=== PATIENT | female | born 1985 | race Caucasian/White ===

== ENCOUNTER 2020-08-14 05:07 | Emergency (ER) | payer OTHER ==
[~2020-08-14 05:07] MED LIST: ACETAMINOPHEN500 M1 PO; AMOXICILLIN500 MG PO; AUGMENTIN 875-1 EACH PO; BACTRIM DS TAB1 EACH PO; BENTYL10 MG PO; BIAXIN500 MG PO; CEFDINIR300 MG PO; CIPRO500 M1 PO; COLACE100 MG PO; CYCLOBENZAPRINE10 MG PO; DICLOFENAC SODI75 MG PO; FLEXERIL10 MG PO; FLOMAX0.4 MG PO; HYDROXYZINE PAM25 MG PO; IBUPROFEN800 MG PO; LEVAQUIN500 MG PO; LEVOTHYROXINE100 MCG PO; LIDOCAINE 5% P1 EACH TOP; MAVYRET 100-401 EACH PO; MEDROL 4MG DOSEP4 MG PO; MELOXICAM15 MG PO; METRONIDAZOLE500 MG PO; MOTRIN600 MG PO; NAPROSYN500 MG PO; NAPROXEN500 MG PO; NEURONTIN300 MG PO; NORCO 5-325 TA1 EACH PO; OFLOXACIN5 M1 AU; ONDANSETRON ODT4 MG PO; ONDANSETRON ODT4 MG SL; PEPCID AC20 MG PO; PEPTO-BISM525 MG/15 PO; PERCOCET 5-3251 EACH PO; PERCOCET 7.5/321 TAB PO; PHENERGAN25 M1 PO; PREDNISONE 20MG20 MG PO; PREDNISONE50 MG PO; PROTONIX 40MG T40 MG PO; PYRIDIUM200 MG PO; ROBAXIN500 MG PO; ROBAXIN750 MG PO; SENOKOT8.6 MG PO; SKELAXIN800 MG PO; SYNTHROID100 MCG PO; TESSALON PERLE100 MG PO; TRAMADOL HCL50 MG PO; VENTOLIN HFA IN18 GM INH; VOLTAREN **OUT50 MG PO; VOLTAREN **OUT75 MG PO; ZOFRAN ODT4 MG PO/SL; ZOFRAN4 M1 PO; ZOFRAN4 MG PO; ZPAK PO
[2020-08-14 07:26] LABS: BILIRUBIN NEGATIVE (NEGATIVE); BLOOD NEGATIVE Ery/uL (NEGATIVE); CLARITY CLEAR (CLEAR); COLOR YELLOW (YELLOW); GLUCOSE (U) NORMAL (NORMAL); LEUKOCYTES NEGATIVE Leu/uL (NEGATIVE); NITRITE NEGATIVE (NEGATIVE); PROTEIN NEGATIVE (NEGATIVE); SPECIFIC GRAVITY 1.025 (1.001-1.030); UROBILINOGEN 0.2 mg/dL (0.2-1.0)
[2020-08-14 07:46] LABS: BASOPHIL 0.4 % (0-2); EOSINOPHIL 1.9 % (0-5); HCT 41.8 % (37.0-47.0); HGB 14.3 g/dl (12.5-16.0); LYMPHOCYTE 38.1 % (15-48); MCH 32.8 pg (25.0-31.0); MCHC 34.2 g/dL (32.0-36.0); MCV 95.9 fL (78.0-100.0); MONOCYTE 9.5 % (0-12); MPV 10.4 fL (6.0-9.5); NEUTROPHIL 49.7 % (41-80); NRBC 0; PLT 278 K/uL (150-400); RBC 4.36 M/uL (4.20-5.40); RDW 13.4 % (11.5-14.0); WBC 9.6 K/uL (4.0-10.5)
[2020-08-14 08:02] LABS: ALBUMIN 3.8 g/dL (3.4-5.0); BILIRUBIN - TOTAL 0.3 mg/dL (0.2-1.0); BUN/CREAT RATIO (CALC) 12.9 RATIO; CREATININE 0.85 mg/dL (0.51-0.95); GLOBULIN (CALCULATION) 3.5 g/dL; POTASSIUM 3.5 mmol/L (3.5-5.1); TOTAL PROTEIN 7.3 g/dL (6.4-8.2)
[2020-08-14] MEDS ORDERED: IBUPROFEN800 MG PO (08:14)
[2020-08-14] MEDS ORDERED: FLOMAX0.4 MG PO (08:14)
[2020-08-14] MEDS ORDERED: PERCOCET 7.5-31 EACH PO (08:14)
[2020-08-14] MEDS ORDERED: ONDANSETRON ODT4 MG SL (08:14)
== END 2020-08-14 09:00 | disposition home or self-care (01) ==
LOC: FER 05:07
PROVIDERS: Emergency Medicine Emergency Medical Services
DX: N20.1 Calculus of ureter (principal); N83.202 Unspecified ovarian cyst, left side; J45.909 Unspecified asthma, uncomplicated; E07.9 Disorder of thyroid, unspecified; F17.200 Nicotine dependence, unspecified, uncomplicated; Z91.041 Radiographic dye allergy status; Z90.49 Acquired absence of other specified parts of digestive tract; Z98.890 Other specified postprocedural states; Z79.899 Other long term (current) drug therapy
CPT/HCPCS: 36415; 80053; 81003; 85025; J1170; J1885; J2405; J7030

== ENCOUNTER 2020-08-16 17:28 | Emergency (ER) | payer OTHER ==
[~2020-08-16 17:28] MED LIST changes: +PERCOCET 7.5-31 EACH PO
[2020-08-16 19:14] LABS: BASOPHIL 0.3 % (0-2); EOSINOPHIL 1.1 % (0-5); HCT 42.1 % (37.0-47.0); HGB 14.1 g/dl (12.5-16.0); LYMPHOCYTE 33.4 % (15-48); MCH 32.7 pg (25.0-31.0); MCHC 33.5 g/dL (32.0-36.0); MCV 97.7 fL (78.0-100.0); MONOCYTE 8.8 % (0-12); MPV 10.1 fL (6.0-9.5); NEUTROPHIL 55.7 % (41-80); NRBC 0; PLT 269 K/uL (150-400); RBC 4.31 M/uL (4.20-5.40); RDW 13.7 % (11.5-14.0); WBC 8.9 K/uL (4.0-10.5)
[2020-08-16 19:30] LABS: BUN/CREAT RATIO (CALC) 13.2 RATIO; CREATININE 0.91 mg/dL (0.51-0.95); POTASSIUM 3.9 mmol/L (3.5-5.1)
[2020-08-16] MEDS ORDERED: TRAMADOL HCL50 MG PO ×2 (20:29→20:31)
== END 2020-08-16 20:40 | disposition home or self-care (01) ==
LOC: FER 17:28
PROVIDERS: Nurse Practitioner Family
DX: N83.202 Unspecified ovarian cyst, left side (principal); G89.29 Other chronic pain; Z79.891 Long term (current) use of opiate analgesic; Z87.442 Personal history of urinary calculi; Z90.49 Acquired absence of other specified parts of digestive tract; Z91.041 Radiographic dye allergy status; Z79.1 Long term (current) use of non-steroidal anti-inflammatories (NSAID); Z79.899 Other long term (current) drug therapy
CPT/HCPCS: 36415; 80048; 85025; J1885

== ENCOUNTER 2020-10-23 13:31 | Emergency (ER) | payer OTHER ==
[2020-10-23 14:50] LABS: BILIRUBIN NEGATIVE (NEGATIVE); BLOOD NEGATIVE Ery/uL (NEGATIVE); CLARITY CLEAR (CLEAR); COLOR YELLOW (YELLOW); GLUCOSE (U) NORMAL (NORMAL); LEUKOCYTES NEGATIVE Leu/uL (NEGATIVE); NITRITE NEGATIVE (NEGATIVE); PROTEIN NEGATIVE (NEGATIVE); SPECIFIC GRAVITY 1.025 (1.001-1.030); UROBILINOGEN 0.2 mg/dL (0.2-1.0)
[2020-10-23 15:33] LABS: BASOPHIL 0.4 % (0-2); EOSINOPHIL 1.1 % (0-5); HCT 40.8 % (37.0-47.0); HGB 13.4 g/dl (12.5-16.0); LYMPHOCYTE 29.9 % (15-48); MCH 32.7 pg (25.0-31.0); MCHC 32.8 g/dL (32.0-36.0); MCV 99.5 fL (78.0-100.0); MONOCYTE 9.9 % (0-12); MPV 10.2 fL (6.0-9.5); NEUTROPHIL 58.3 % (41-80); NRBC 0; PLT 226 K/uL (150-400); RDW 13.2 % (11.5-14.0); WBC 9.8 K/uL (4.0-10.5)
[2020-10-23 15:49] LABS: ALBUMIN 3.7 g/dL (3.4-5.0); BILIRUBIN - TOTAL 0.3 mg/dL (0.2-1.0); BUN/CREAT RATIO (CALC) 17.8 RATIO; CREATININE 0.73 mg/dL (0.51-0.95); GLOBULIN (CALCULATION) 3.4 g/dL; POTASSIUM 3.8 mmol/L (3.5-5.1); TOTAL PROTEIN 7.1 g/dL (6.4-8.2)
== END 2020-10-23 17:37 | disposition home or self-care (01) ==
LOC: FER 13:31
PROVIDERS: Emergency Medicine
DX: G89.29 Other chronic pain (principal); R10.32 Left lower quadrant pain; F17.210 Nicotine dependence, cigarettes, uncomplicated; Z91.041 Radiographic dye allergy status
CPT/HCPCS: 36415; 80053; 81003; 82150; 83690; 85025; 99284

== ENCOUNTER 2020-10-30 16:07 | Emergency (ER) | payer OTHER ==
[2020-10-30 17:36] LABS: BASOPHIL 0.4 % (0-2); HCT 41.9 % (37.0-47.0); HGB 14.1 g/dl (12.5-16.0); LYMPHOCYTE 24.8 % (15-48); MCH 32.6 pg (25.0-31.0); MCHC 33.7 g/dL (32.0-36.0); MCV 96.8 fL (78.0-100.0); MONOCYTE 8.9 % (0-12); MPV 10.3 fL (6.0-9.5); NEUTROPHIL 64.3 % (41-80); NRBC 0; PLT 252 K/uL (150-400); RBC 4.33 M/uL (4.20-5.40); RDW 13.1 % (11.5-14.0); WBC 11.2 K/uL (4.0-10.5)
[2020-10-30 17:51] LABS: ALBUMIN 3.9 g/dL (3.4-5.0); BILIRUBIN - TOTAL 0.6 mg/dL (0.2-1.0); BUN/CREAT RATIO (CALC) 12.7 RATIO; CREATININE 0.71 mg/dL (0.51-0.95); GLOBULIN (CALCULATION) 3.3 g/dL; POTASSIUM 3.7 mmol/L (3.5-5.1); TOTAL PROTEIN 7.2 g/dL (6.4-8.2)
[2020-10-30] MEDS ORDERED: ZOFRAN4 M1 PO (20:19)
== END 2020-10-30 20:32 | disposition home or self-care (01) ==
LOC: FER 16:07
PROVIDERS: Nurse Practitioner Family
DX: R10.13 Epigastric pain (principal); R11.2 Nausea with vomiting, unspecified; R19.7 Diarrhea, unspecified; J45.909 Unspecified asthma, uncomplicated; Z91.041 Radiographic dye allergy status; Z20.822 Contact with and (suspected) exposure to COVID-19
CPT/HCPCS: 36415; 73610; 80053; 85025; J2405; J7030; U0002

== ENCOUNTER 2020-11-14 06:43 | Emergency (ER) | payer OTHER ==
[2020-11-14] MEDS ORDERED: VENTOLIN HFA IN18 GM INH (09:01)
== END 2020-11-14 09:23 | disposition home or self-care (01) ==
LOC: FER 06:43
DX: J45.909 Unspecified asthma, uncomplicated (principal); J06.9 Acute upper respiratory infection, unspecified; R10.12 Left upper quadrant pain; R10.32 Left lower quadrant pain; Z20.822 Contact with and (suspected) exposure to COVID-19; Z98.890 Other specified postprocedural states; Z90.49 Acquired absence of other specified parts of digestive tract; Z90.710 Acquired absence of both cervix and uterus; Z91.041 Radiographic dye allergy status
CPT/HCPCS: 94640; 94664; U0002

== ENCOUNTER 2020-11-21 14:08 | Emergency (ER) | payer OTHER ==
[2020-11-21 15:35] LABS: BILIRUBIN NEGATIVE (NEGATIVE); BLOOD NEGATIVE Ery/uL (NEGATIVE); CLARITY CLEAR (CLEAR); COLOR YELLOW (YELLOW); GLUCOSE (U) NORMAL (NORMAL); LEUKOCYTES 1+ Leu/uL (NEGATIVE); NITRITE NEGATIVE (NEGATIVE); PROTEIN NEGATIVE (NEGATIVE); SPECIFIC GRAVITY 1.015 (1.001-1.030); UROBILINOGEN 0.2 mg/dL (0.2-1.0); pH 7.5 (5.0-9.0)
[2020-11-21 15:49] LABS: AMORPHOUS URATES CRYSTALS MODERATE; BACTERIA TRACE
[2020-11-21] MEDS ORDERED: PREDNISONE 20MG20 MG PO (17:00)
== END 2020-11-21 17:21 | disposition home or self-care (01) ==
LOC: FER 14:08
PROVIDERS: Nurse Practitioner Family
DX: M54.16 Radiculopathy, lumbar region (principal); G89.29 Other chronic pain; E03.9 Hypothyroidism, unspecified; F17.210 Nicotine dependence, cigarettes, uncomplicated; Z90.49 Acquired absence of other specified parts of digestive tract; Z90.710 Acquired absence of both cervix and uterus; Z91.041 Radiographic dye allergy status
CPT/HCPCS: 72131; 81001; 87088; J1100

== ENCOUNTER 2020-11-23 23:33 | Day surgery (SDC) | payer OTHER ==
[~2020-11-23] VITALS: Ht 157.5 cm; Wt 77.1 kg
[2020-11-24 02:21] LABS: BILIRUBIN NEGATIVE (NEGATIVE); BLOOD NEGATIVE Ery/uL (NEGATIVE); CLARITY CLEAR (CLEAR); COLOR YELLOW (YELLOW); GLUCOSE (U) NORMAL (NORMAL); LEUKOCYTES 1+ Leu/uL (NEGATIVE); NITRITE NEGATIVE (NEGATIVE); PROTEIN NEGATIVE (NEGATIVE); pH 6.5 (5.0-9.0)
[2020-11-24 02:22] LABS: BASOPHIL 0.5 % (0-2); EOSINOPHIL 1.5 % (0-5); HCT 40.7 % (37.0-47.0); HGB 13.8 g/dl (12.5-16.0); LYMPHOCYTE 42.3 % (15-48); MCH 32.6 pg (25.0-31.0); MCHC 33.9 g/dL (32.0-36.0); MCV 96.2 fL (78.0-100.0); MONOCYTE 8.6 % (0-12); MPV 10.1 fL (6.0-9.5); NEUTROPHIL 46.8 % (41-80); NRBC 0; PLT 260 K/uL (150-400); RBC 4.23 M/uL (4.20-5.40); RDW 13.1 % (11.5-14.0); WBC 10.7 K/uL (4.0-10.5)
[2020-11-24 02:31] LABS: CALCIUM OXALATE CRYSTALS MODERATE
[2020-11-24 02:34] LABS: BACTERIA 1+
[2020-11-24 02:40] LABS: ALBUMIN 3.5 g/dL (3.4-5.0); BILIRUBIN - TOTAL 0.2 mg/dL (0.2-1.0); BUN/CREAT RATIO (CALC) 15.9 RATIO; CREATININE 0.82 mg/dL (0.51-0.95); GLOBULIN (CALCULATION) 3.1 g/dL; TOTAL PROTEIN 6.6 g/dL (6.4-8.2)
[2020-11-24] MEDS ORDERED: MOTRIN600 MG PO (16:44)
[2020-11-24] MEDS ORDERED: COLACE100 MG PO (16:44)
[2020-11-24] MEDS ORDERED: PERCOCET 5-3251 EACH PO ×2 (16:44→16:45)
[2020-11-25 22:05] LABS: CHLAMYDIA TRACHOMATIS, NAA Negative (Negative); NEISSERIA GONORRHOEAE, NAA Negative (Negative)
== END 2020-11-24 21:28 | disposition home or self-care (01) ==
LOC: FER 23:33 → FAS 11-24 08:17 → FMS 11-24 19:48 → FAS 11-24 21:28
PROVIDERS: Emergency Medicine Emergency Medical Services
DX: N83.202 Unspecified ovarian cyst, left side (principal); K66.0 Peritoneal adhesions (postprocedural) (postinfection); J45.909 Unspecified asthma, uncomplicated; F17.210 Nicotine dependence, cigarettes, uncomplicated; A59.9 Trichomoniasis, unspecified; M19.90 Unspecified osteoarthritis, unspecified site; E03.9 Hypothyroidism, unspecified; M51.16 Intervertebral disc disorders with radiculopathy, lumbar region; E11.9 Type 2 diabetes mellitus without complications; Z91.51 Personal history of suicidal behavior; Z79.899 Other long term (current) drug therapy; Z91.041 Radiographic dye allergy status; Z90.710 Acquired absence of both cervix and uterus; Z90.721 Acquired absence of ovaries, unilateral; Z90.79 Acquired absence of other genital organ(s); Z20.822 Contact with and (suspected) exposure to COVID-19
CPT/HCPCS: 36415; 76830; 80053; 81001; 85025; 87088; 87491; 87591; J0696; J1100; J1170; J1885; J2250; J2270; J2405; J2704; J2710; J3010; J7120; U0002

== ENCOUNTER 2020-11-24 10:55 | Emergency (ER) | payer OTHER ==
[2020-11-24] MEDS ORDERED: COLACE100 MG PO (16:44)
[2020-11-24] MEDS ORDERED: PERCOCET 5-3251 EACH PO ×2 (16:44→16:45)
[2020-11-24] MEDS ORDERED: MOTRIN600 MG PO (16:44)
== END 2020-11-24 16:23 | disposition still patient (30) ==
LOC: FER 10:55
DX: N83.512 Torsion of left ovary and ovarian pedicle (principal); J45.909 Unspecified asthma, uncomplicated; F17.210 Nicotine dependence, cigarettes, uncomplicated; Z91.041 Radiographic dye allergy status
CPT/HCPCS: J1170; J2405; J7030

== ENCOUNTER 2020-11-28 14:10 | Emergency (ER) | payer OTHER ==
[2020-11-28 14:43] LABS: BILIRUBIN NEGATIVE (NEGATIVE); BLOOD NEGATIVE Ery/uL (NEGATIVE); CLARITY CLEAR (CLEAR); COLOR YELLOW (YELLOW); GLUCOSE (U) NORMAL (NORMAL); LEUKOCYTES NEGATIVE Leu/uL (NEGATIVE); NITRITE NEGATIVE (NEGATIVE); PROTEIN NEGATIVE (NEGATIVE); SPECIFIC GRAVITY 1.015 (1.001-1.030); UROBILINOGEN 0.2 mg/dL (0.2-1.0)
[2020-11-28 14:46] LABS: MARIJUANA (THC) POSITIVE (NEGATIVE)
[2020-11-28 14:47] LABS: AMPHETAMINES NEGATIVE (NEGATIVE); BARBITURATES NEGATIVE (NEGATIVE); ECSTASY (MDMA) NEGATIVE (NEGATIVE); METHADONE NEGATIVE (NEGATIVE); OPIATES NEGATIVE (NEGATIVE); OXYCODONE NEGATIVE (NEGATIVE)
[2020-11-28 14:56] LABS: BASOPHIL 0.4 % (0-2); EOSINOPHIL 2.1 % (0-5); HCT 43.6 % (37.0-47.0); HGB 14.8 g/dl (12.5-16.0); LYMPHOCYTE 25.7 % (15-48); MCH 32.7 pg (25.0-31.0); MCHC 33.9 g/dL (32.0-36.0); MCV 96.2 fL (78.0-100.0); MONOCYTE 8.1 % (0-12); MPV 10.1 fL (6.0-9.5); NEUTROPHIL 63.1 % (41-80); NRBC 0; PLT 295 K/uL (150-400); RBC 4.53 M/uL (4.20-5.40); RDW 13.1 % (11.5-14.0); WBC 9.4 K/uL (4.0-10.5)
[2020-11-28 15:31] LABS: ALBUMIN 3.9 g/dL (3.4-5.0); BILIRUBIN - TOTAL 0.3 mg/dL (0.2-1.0); CREATININE 0.75 mg/dL (0.51-0.95); GLOBULIN (CALCULATION) 3.4 g/dL; POTASSIUM 3.7 mmol/L (3.5-5.1); TOTAL PROTEIN 7.3 g/dL (6.4-8.2)
== END 2020-11-28 16:50 | disposition home or self-care (01) ==
LOC: FER 14:10
PROVIDERS: Nurse Practitioner Family
DX: R10.84 Generalized abdominal pain (principal); F14.90 Cocaine use, unspecified, uncomplicated; F12.90 Cannabis use, unspecified, uncomplicated; J45.909 Unspecified asthma, uncomplicated; F17.210 Nicotine dependence, cigarettes, uncomplicated; Z91.041 Radiographic dye allergy status
CPT/HCPCS: 36415; 80053; 80305; 81003; 85025; J2270; J2405; J7030

== ENCOUNTER 2020-12-08 02:08 | Emergency (ER) | payer OTHER ==
[2020-12-08 02:55] LABS: BILIRUBIN NEGATIVE (NEGATIVE); BLOOD 2+ Ery/uL (NEGATIVE); CLARITY CLEAR (CLEAR); COLOR YELLOW (YELLOW); GLUCOSE (U) NORMAL (NORMAL); LEUKOCYTES 1+ Leu/uL (NEGATIVE); NITRITE NEGATIVE (NEGATIVE); PROTEIN NEGATIVE (NEGATIVE); SPECIFIC GRAVITY >=1.030 (1.001-1.030); UROBILINOGEN 0.2 mg/dL (0.2-1.0)
[2020-12-08 03:11] LABS: ALBUMIN 3.7 g/dL (3.4-5.0); BILIRUBIN - TOTAL 0.3 mg/dL (0.2-1.0); BUN/CREAT RATIO (CALC) 18.1 RATIO; CREATININE 0.83 mg/dL (0.51-0.95); GLOBULIN (CALCULATION) 3.3 g/dL; POTASSIUM 3.8 mmol/L (3.5-5.1)
[2020-12-08 03:16] LABS: CALCIUM OXALATE CRYSTALS MODERATE
[2020-12-08 03:17] LABS: BACTERIA TRACE
[2020-12-08 03:17] LABS: BASOPHIL 0.6 % (0-2); HCT 40.6 % (37.0-47.0); HGB 13.6 g/dl (12.5-16.0); LYMPHOCYTE 41.1 % (15-48); MCH 32.9 pg (25.0-31.0); MCHC 33.5 g/dL (32.0-36.0); MCV 98.3 fL (78.0-100.0); MONOCYTE 8.5 % (0-12); MPV 10.7 fL (6.0-9.5); NEUTROPHIL 47.5 % (41-80); NRBC 0; PLT 262 K/uL (150-400); RBC 4.13 M/uL (4.20-5.40); RDW 13.2 % (11.5-14.0); WBC 8.9 K/uL (4.0-10.5)
[2020-12-08] MEDS ORDERED: MACROBID100 MG PO (05:22)
[2020-12-08] MEDS ORDERED: ZOFRAN4 M1 PO (05:22)
== END 2020-12-08 05:45 | disposition home or self-care (01) ==
LOC: FER 02:08
PROVIDERS: Emergency Medicine
DX: N39.0 Urinary tract infection, site not specified (principal); F17.200 Nicotine dependence, unspecified, uncomplicated; Z91.041 Radiographic dye allergy status
CPT/HCPCS: 36415; 80053; 81001; 83690; 85025; J1170; J1885; J2405; J7030

== ENCOUNTER 2020-12-15 02:14 | Emergency (ER) | payer OTHER ==
[~2020-12-15 02:14] MED LIST changes: +MACROBID100 MG PO
[2020-12-15 03:57] LABS: BASOPHIL 0.6 % (0-2); HCT 40.8 % (37.0-47.0); HGB 13.7 g/dl (12.5-16.0); LYMPHOCYTE 38.4 % (15-48); MCH 32.6 pg (25.0-31.0); MCHC 33.6 g/dL (32.0-36.0); MCV 97.1 fL (78.0-100.0); MONOCYTE 9.4 % (0-12); MPV 10.4 fL (6.0-9.5); NEUTROPHIL 49.3 % (41-80); NRBC 0; PLT 249 K/uL (150-400); RDW 13.4 % (11.5-14.0)
[2020-12-15 04:22] LABS: ALBUMIN 4.2 g/dL (3.4-5.0); ALKALINE PHOSHATASE 59 U/L (46-116); ALT 21 U/L (14-59); AST 20 U/L (15-37); BILIRUBIN - TOTAL 0.4 mg/dL (0.2-1.0); BUN 16 mg/dL (7-18); BUN/CREAT RATIO (CALC) 17.4 RATIO; CHLORIDE 103 mmol/L (98-107); CO2 (BICARBONATE) 26 mmol/L (21-32); CREATININE 0.92 mg/dL (0.51-0.95); GLOBULIN (CALCULATION) 3.2 g/dL; GLUCOSE 82 mg/dL (74-106); POTASSIUM 3.5 mmol/L (3.5-5.1); TOTAL PROTEIN 7.4 g/dL (6.4-8.2)
[2020-12-15 04:33] LABS: C-REACTIVE PROTEIN < 0.20 mg/dL (<=0.90)
[2020-12-15] MEDS ORDERED: PERCOCET 5-3251 EACH PO (05:17)
== END 2020-12-15 05:49 | disposition home or self-care (01) ==
LOC: FER 02:14
PROVIDERS: Emergency Medicine Emergency Medical Services
DX: M25.551 Pain in right hip (principal); J45.909 Unspecified asthma, uncomplicated; F17.200 Nicotine dependence, unspecified, uncomplicated; Z91.041 Radiographic dye allergy status
CPT/HCPCS: 36415; 73502; 80053; 85025; 86140; J1100; J1170; J2405; J3360

== ENCOUNTER 2021-01-03 20:53 | Emergency (ER) | payer OTHER ==
[2021-01-03 22:51] LABS: BASOPHIL 0.5 % (0-2); EOSINOPHIL 0.8 % (0-5); HCT 42.3 % (37.0-47.0); HGB 14.3 g/dl (12.5-16.0); LYMPHOCYTE 36.6 % (15-48); MCH 32.9 pg (25.0-31.0); MCHC 33.8 g/dL (32.0-36.0); MCV 97.2 fL (78.0-100.0); MONOCYTE 9.1 % (0-12); MPV 10.6 fL (6.0-9.5); NEUTROPHIL 52.8 % (41-80); NRBC 0; PLT 261 K/uL (150-400); RBC 4.35 M/uL (4.20-5.40); RDW 13.4 % (11.5-14.0); WBC 9.8 K/uL (4.0-10.5)
[2021-01-03 23:05] LABS: BUN/CREAT RATIO (CALC) 10.6 RATIO; CREATININE 0.66 mg/dL (0.51-0.95); POTASSIUM 3.5 mmol/L (3.5-5.1)
[2021-01-03 23:24] LABS: CORONAVIRUS 2019 SARS-COV-2 NEGATIVE (NEGATIVE); INFLUENZA A NAA NEGATIVE (NEGATIVE)
== END 2021-01-04 00:38 | disposition home or self-care (01) ==
LOC: FER 20:53
PROVIDERS: Nurse Practitioner Family
DX: B34.9 Viral infection, unspecified (principal); Z20.822 Contact with and (suspected) exposure to COVID-19; Z79.899 Other long term (current) drug therapy
CPT/HCPCS: 36415; 71045; 80048; 85025; J1885; U0002

== ENCOUNTER 2021-02-03 01:33 | Emergency (ER) | payer OTHER ==
[2021-02-03 03:29] LABS: BASOPHIL 0.4 % (0-2); HCT 37.1 % (37.0-47.0); HGB 12.3 g/dl (12.5-16.0); LYMPHOCYTE 29.6 % (15-48); MCH 32.8 pg (25.0-31.0); MCHC 33.2 g/dL (32.0-36.0); MCV 98.9 fL (78.0-100.0); MONOCYTE 11.9 % (0-12); MPV 10.5 fL (6.0-9.5); NEUTROPHIL 55.8 % (41-80); NRBC 0; PLT 227 K/uL (150-400); RBC 3.75 M/uL (4.20-5.40); RDW 13.3 % (11.5-14.0); WBC 9.5 K/uL (4.0-10.5)
[2021-02-03 03:44] LABS: CREATININE 0.7 mg/dL (0.51-0.95); POTASSIUM 3.6 mmol/L (3.5-5.1)
[2021-02-03] MEDS ORDERED: PREDNISONE 20MG20 MG PO (05:06)
[2021-02-03] MEDS ORDERED: VENTOLIN HFA IN18 GM INH (05:06)
[2021-02-03] MEDS ORDERED: MUCINEX1200 MG PO (05:06)
[2021-02-03] MEDS ORDERED: TESSALON PERLE100 MG PO (05:06)
[2021-02-03] MEDS ORDERED: AZITHROMYCIN250 MG PO (05:07)
[2021-02-03 05:30] LABS: CORONAVIRUS 2019 SARS-COV-2 NEGATIVE (NEGATIVE); INFLUENZA A NAA NEGATIVE (NEGATIVE)
== END 2021-02-03 05:20 | disposition home or self-care (01) ==
LOC: FER 01:33
PROVIDERS: Internal Medicine
DX: J20.9 Acute bronchitis, unspecified (principal); M54.50 Low back pain, unspecified; J45.909 Unspecified asthma, uncomplicated; F17.210 Nicotine dependence, cigarettes, uncomplicated; Z91.041 Radiographic dye allergy status; Z20.822 Contact with and (suspected) exposure to COVID-19
CPT/HCPCS: 36415; 71045; 80048; 84145; 85025; 96372; J2405; J2930; U0002

== ENCOUNTER 2021-02-22 00:02 | Emergency (ER) | payer OTHER ==
[~2021-02-22 00:02] MED LIST changes: +AZITHROMYCIN250 MG PO; +MUCINEX1200 MG PO
[2021-02-22 05:36] LABS: BILIRUBIN NEGATIVE (NEGATIVE); BLOOD NEGATIVE Ery/uL (NEGATIVE); CLARITY CLEAR (CLEAR); COLOR YELLOW (YELLOW); GLUCOSE (U) NORMAL (NORMAL); LEUKOCYTES NEGATIVE Leu/uL (NEGATIVE); NITRITE NEGATIVE (NEGATIVE); PROTEIN NEGATIVE (NEGATIVE); UROBILINOGEN 0.2 mg/dL (0.2-1.0); pH 8.5 (5.0-9.0)
[2021-02-22] MEDS ORDERED: IBUPROFEN800 MG PO (06:21)
[2021-02-22] MEDS ORDERED: ONDANSETRON ODT4 MG SL (06:21)
[2021-02-22] MEDS ORDERED: PERCOCET 5-3251 EACH PO ×2 (06:21→06:25)
== END 2021-02-22 07:10 | disposition home or self-care (01) ==
LOC: FER 00:02
PROVIDERS: Emergency Medicine Emergency Medical Services
DX: R10.32 Left lower quadrant pain (principal); F17.210 Nicotine dependence, cigarettes, uncomplicated; Z91.041 Radiographic dye allergy status
CPT/HCPCS: 81003; 96372; 99284; J1170; J1885

== ENCOUNTER 2021-03-15 04:58 | Emergency (ER) | payer OTHER | END 2021-03-15 08:30 | disposition left against medical advice (07) | LOC: FER 04:58 | DX: K08.89 Other specified disorders of teeth and supporting structures (principal); Z53.21 Procedure and treatment not carried out due to patient leaving prior to being seen by health care provider ==

== ENCOUNTER 2021-04-01 20:29 | Emergency (ER) | payer OTHER ==
[2021-04-01 21:57] LABS: CORONAVIRUS 2019 SARS-COV-2 NEGATIVE (NEGATIVE); INFLUENZA A NAA NEGATIVE (NEGATIVE)
== END 2021-04-01 22:09 | disposition home or self-care (01) ==
LOC: FER 20:29
PROVIDERS: Nurse Practitioner Family
DX: B34.9 Viral infection, unspecified (principal); J02.9 Acute pharyngitis, unspecified; J45.909 Unspecified asthma, uncomplicated; F17.210 Nicotine dependence, cigarettes, uncomplicated; Z91.041 Radiographic dye allergy status; Z20.822 Contact with and (suspected) exposure to COVID-19
CPT/HCPCS: 87880; 99284; U0002

== ENCOUNTER 2021-04-12 22:20 | Emergency (ER) | payer OTHER ==
[2021-04-12 23:11] LABS: BILIRUBIN NEGATIVE (NEGATIVE); BLOOD NEGATIVE Ery/uL (NEGATIVE); CLARITY CLEAR (CLEAR); COLOR YELLOW (YELLOW); GLUCOSE (U) NORMAL (NORMAL); LEUKOCYTES NEGATIVE Leu/uL (NEGATIVE); NITRITE NEGATIVE (NEGATIVE); PROTEIN NEGATIVE (NEGATIVE); SPECIFIC GRAVITY >=1.030 (1.001-1.030); UROBILINOGEN 0.2 mg/dL (0.2-1.0); pH 5.5 (5.0-9.0)
[2021-04-12 23:37] LABS: BASOPHIL 0.4 % (0-2); EOSINOPHIL 1.6 % (0-5); HCT 42.6 % (37.0-47.0); HGB 14.8 g/dl (12.5-16.0); LYMPHOCYTE 40.2 % (15-48); MCH 32.1 pg (25.0-31.0); MCHC 34.7 g/dL (32.0-36.0); MCV 92.4 fL (78.0-100.0); MONOCYTE 11.8 % (0-12); MPV 9.9 fL (6.0-9.5); NEUTROPHIL 45.7 % (41-80); NRBC 0; PLT 278 K/uL (150-400); RBC 4.61 M/uL (4.20-5.40); RDW 12.3 % (11.5-14.0); WBC 10.4 K/uL (4.0-10.5)
[2021-04-12 23:57] LABS: BILIRUBIN - TOTAL 0.3 mg/dL (0.2-1.0); BUN/CREAT RATIO (CALC) 18.1 RATIO; CREATININE 0.72 mg/dL (0.51-0.95); GLOBULIN (CALCULATION) 3.6 g/dL; POTASSIUM 3.7 mmol/L (3.5-5.1); TOTAL PROTEIN 7.6 g/dL (6.4-8.2)
[2021-04-13] MEDS ORDERED: PERCOCET 5-3251 EACH PO (00:34)
[2021-04-13] MEDS ORDERED: ONDANSETRON ODT4 MG PO (00:34)
[2021-04-13] MEDS ORDERED: PHENERGAN25 M1 PO (00:34)
== END 2021-04-13 01:44 | disposition home or self-care (01) ==
LOC: FER 22:20
PROVIDERS: Internal Medicine
DX: R10.10 Upper abdominal pain, unspecified (principal); R11.2 Nausea with vomiting, unspecified; R19.7 Diarrhea, unspecified; G89.29 Other chronic pain; M54.9 Dorsalgia, unspecified; J45.909 Unspecified asthma, uncomplicated; F17.210 Nicotine dependence, cigarettes, uncomplicated; Z91.041 Radiographic dye allergy status
CPT/HCPCS: 36415; 80053; 81003; 83690; 85025; J1170; J2405; J2550; J7030

== ENCOUNTER 2021-04-19 10:30 | Emergency (ER) | payer OTHER ==
[2021-04-19 11:50] LABS: BASOPHIL 0.3 % (0-2); EOSINOPHIL 1.9 % (0-5); HCT 43.2 % (37.0-47.0); HGB 14.7 g/dl (12.5-16.0); LYMPHOCYTE 32.5 % (15-48); MCH 31.8 pg (25.0-31.0); MCV 93.5 fL (78.0-100.0); MPV 9.8 fL (6.0-9.5); NRBC 0; PLT 274 K/uL (150-400); RBC 4.62 M/uL (4.20-5.40); RDW 12.3 % (11.5-14.0); WBC 7.9 K/uL (4.0-10.5)
[2021-04-19 11:52] LABS: BILIRUBIN NEGATIVE (NEGATIVE); BLOOD NEGATIVE Ery/uL (NEGATIVE); CLARITY HAZY (CLEAR); COLOR YELLOW (YELLOW); GLUCOSE (U) NORMAL (NORMAL); LEUKOCYTES NEGATIVE Leu/uL (NEGATIVE); NITRITE NEGATIVE (NEGATIVE); PROTEIN NEGATIVE (NEGATIVE); SPECIFIC GRAVITY 1.025 (1.001-1.030); UROBILINOGEN 0.2 mg/dL (0.2-1.0)
[2021-04-19 12:11] LABS: ALBUMIN 4.1 g/dL (3.4-5.0); BILIRUBIN - TOTAL 0.4 mg/dL (0.2-1.0); CREATININE 0.75 mg/dL (0.51-0.95); GLOBULIN (CALCULATION) 3.5 g/dL; POTASSIUM 3.6 mmol/L (3.5-5.1); TOTAL PROTEIN 7.6 g/dL (6.4-8.2)
== END 2021-04-19 13:35 | disposition left against medical advice (07) ==
LOC: FER 10:30
PROVIDERS: Emergency Medicine
DX: R10.32 Left lower quadrant pain (principal); G89.29 Other chronic pain; J45.909 Unspecified asthma, uncomplicated; F17.210 Nicotine dependence, cigarettes, uncomplicated; Z91.041 Radiographic dye allergy status
CPT/HCPCS: 36415; 80053; 81003; 85025; 99283

== ENCOUNTER 2021-04-30 23:30 | Emergency (ER) | payer OTHER ==
[2021-05-01 00:38] LABS: BILIRUBIN NEGATIVE (NEGATIVE); BLOOD NEGATIVE Ery/uL (NEGATIVE); CLARITY CLEAR (CLEAR); COLOR YELLOW (YELLOW); GLUCOSE (U) NORMAL (NORMAL); LEUKOCYTES 1+ Leu/uL (NEGATIVE); NITRITE NEGATIVE (NEGATIVE); PROTEIN NEGATIVE (NEGATIVE); SPECIFIC GRAVITY 1.025 (1.001-1.030); UROBILINOGEN 0.2 mg/dL (0.2-1.0); pH 6.5 (5.0-9.0)
[2021-05-01 00:42] LABS: ECSTASY (MDMA) NEGATIVE (NEGATIVE); MARIJUANA (THC) POSITIVE (NEGATIVE); METHADONE NEGATIVE (NEGATIVE); OPIATES POSITIVE (NEGATIVE)
[2021-05-01 00:43] LABS: AMPHETAMINES NEGATIVE (NEGATIVE); BARBITURATES NEGATIVE (NEGATIVE); OXYCODONE POSITIVE (NEGATIVE)
[2021-05-01 00:45] LABS: BACTERIA 1+
[2021-05-01] MEDS ORDERED: MACROBID100 MG PO (01:23)
== END 2021-05-01 01:36 | disposition home or self-care (01) ==
LOC: FER 23:30
PROVIDERS: Emergency Medicine
DX: M54.50 Low back pain, unspecified (principal); N39.0 Urinary tract infection, site not specified; F17.200 Nicotine dependence, unspecified, uncomplicated; Z91.041 Radiographic dye allergy status
CPT/HCPCS: 80305; 81001; 99283; J1885; J7512

== ENCOUNTER 2021-05-11 18:42 | Emergency (ER) | payer OTHER ==
[2021-05-11 20:46] LABS: BILIRUBIN NEGATIVE (NEGATIVE); BLOOD NEGATIVE Ery/uL (NEGATIVE); CLARITY CLEAR (CLEAR); COLOR YELLOW (YELLOW); GLUCOSE (U) NORMAL (NORMAL); LEUKOCYTES 1+ Leu/uL (NEGATIVE); NITRITE NEGATIVE (NEGATIVE); PROTEIN NEGATIVE (NEGATIVE); UROBILINOGEN 0.2 mg/dL (0.2-1.0)
[2021-05-11 20:56] LABS: URINARY RBC RARE
[2021-05-11 20:57] LABS: BACTERIA TRACE
[2021-05-11 21:00] LABS: BASOPHIL 0.3 % (0-2); EOSINOPHIL 1.4 % (0-5); HCT 41.6 % (37.0-47.0); HGB 14.1 g/dl (12.5-16.0); LYMPHOCYTE 37.2 % (15-48); MCH 32.2 pg (25.0-31.0); MCHC 33.9 g/dL (32.0-36.0); MONOCYTE 10.2 % (0-12); MPV 9.9 fL (6.0-9.5); NEUTROPHIL 50.6 % (41-80); NRBC 0; PLT 270 K/uL (150-400); RBC 4.38 M/uL (4.20-5.40); RDW 12.6 % (11.5-14.0); WBC 9.2 K/uL (4.0-10.5)
[2021-05-11 21:17] LABS: ALBUMIN 3.7 g/dL (3.4-5.0); BILIRUBIN - TOTAL 0.2 mg/dL (0.2-1.0); BUN/CREAT RATIO (CALC) 21.2 RATIO; CREATININE 0.66 mg/dL (0.51-0.95); GLOBULIN (CALCULATION) 3.4 g/dL; POTASSIUM 3.4 mmol/L (3.5-5.1); TOTAL PROTEIN 7.1 g/dL (6.4-8.2)
== END 2021-05-11 21:47 | disposition left against medical advice (07) ==
LOC: FER 18:42
PROVIDERS: Nurse Practitioner Family
DX: R10.32 Left lower quadrant pain (principal); J45.909 Unspecified asthma, uncomplicated; F17.210 Nicotine dependence, cigarettes, uncomplicated; E03.9 Hypothyroidism, unspecified; Z79.890 Hormone replacement therapy; Z91.041 Radiographic dye allergy status; Z53.29 Procedure and treatment not carried out because of patient's decision for other reasons
CPT/HCPCS: 36415; 80053; 81001; 85025; 99283

== ENCOUNTER 2021-07-20 12:25 | Emergency (ER) | payer OTHER ==
[2021-07-20 13:29] LABS: CORONAVIRUS 2019 SARS-COV-2 NEGATIVE (NEGATIVE); INFLUENZA A NAA NEGATIVE (NEGATIVE)
== END 2021-07-20 14:03 | disposition home or self-care (01) ==
LOC: FER 12:25
PROVIDERS: Nurse Practitioner Family
DX: B34.9 Viral infection, unspecified (principal); F17.210 Nicotine dependence, cigarettes, uncomplicated; E03.9 Hypothyroidism, unspecified; Z20.822 Contact with and (suspected) exposure to COVID-19; Z91.041 Radiographic dye allergy status; Z79.890 Hormone replacement therapy
CPT/HCPCS: 99283; U0002

== ENCOUNTER 2021-08-11 00:29 | Emergency (ER) | payer OTHER ==
[2021-08-11 00:49] LABS: BILIRUBIN NEGATIVE (NEGATIVE); BLOOD NEGATIVE Ery/uL (NEGATIVE); CLARITY CLEAR (CLEAR); COLOR YELLOW (YELLOW); GLUCOSE (U) NORMAL (NORMAL); LEUKOCYTES NEGATIVE Leu/uL (NEGATIVE); NITRITE NEGATIVE (NEGATIVE); PROTEIN NEGATIVE (NEGATIVE); SPECIFIC GRAVITY 1.025 (1.001-1.030); UROBILINOGEN 0.2 mg/dL (0.2-1.0)
[2021-08-11 01:08] LABS: BASOPHIL 0.5 % (0-2); EOSINOPHIL 2.3 % (0-5); HCT 41.3 % (37.0-47.0); HGB 14.4 g/dl (12.5-16.0); LYMPHOCYTE 32.9 % (15-48); MCH 32.7 pg (25.0-31.0); MCHC 34.9 g/dL (32.0-36.0); MCV 93.7 fL (78.0-100.0); MONOCYTE 9.2 % (0-12); MPV 10.1 fL (6.0-9.5); NEUTROPHIL 54.8 % (41-80); NRBC 0; PLT 286 K/uL (150-400); RBC 4.41 M/uL (4.20-5.40); RDW 12.8 % (11.5-14.0); WBC 10.4 K/uL (4.0-10.5)
[2021-08-11 01:25] LABS: ALBUMIN 3.8 g/dL (3.4-5.0); BILIRUBIN - TOTAL 0.3 mg/dL (0.2-1.0); BUN/CREAT RATIO (CALC) 18.3 RATIO; CREATININE 0.71 mg/dL (0.51-0.95); GLOBULIN (CALCULATION) 3.5 g/dL; POTASSIUM 3.3 mmol/L (3.5-5.1); TOTAL PROTEIN 7.3 g/dL (6.4-8.2)
[2021-08-11] MEDS ORDERED: ONDANSETRON ODT4 MG PO (03:18)
[2021-08-11] MEDS ORDERED: MIRALAX 238GM238 GM PO (03:18)
[2021-08-11] MEDS ORDERED: NORCO 5-325 TA1 EACH PO (03:18)
== END 2021-08-11 03:55 | disposition home or self-care (01) ==
LOC: FER 00:29
PROVIDERS: Internal Medicine
DX: R10.32 Left lower quadrant pain (principal); F17.210 Nicotine dependence, cigarettes, uncomplicated; R10.2 Pelvic and perineal pain; Z91.041 Radiographic dye allergy status
CPT/HCPCS: 36415; 80053; 81003; 83690; 84145; 85025; J2270; J2405

== ENCOUNTER 2021-08-24 00:07 | Emergency (ER) | payer OTHER ==
[~2021-08-24 00:07] MED LIST changes: +MIRALAX 238GM238 GM PO
[2021-08-24] MEDS ORDERED: NORCO 5-325 TA1 EACH PO ×3 (00:16→01:38)
[2021-08-24] MEDS ORDERED: MEDROL 4MG DOSEP4 MG PO (01:38)
== END 2021-08-24 02:05 | disposition home or self-care (01) ==
LOC: FER 00:07
DX: M54.42 Lumbago with sciatica, left side (principal); F17.210 Nicotine dependence, cigarettes, uncomplicated; Z91.041 Radiographic dye allergy status
CPT/HCPCS: 96372; J1170; J2930

== ENCOUNTER 2021-09-03 22:06 | Emergency (ER) | payer OTHER ==
[2021-09-03 23:17] LABS: BILIRUBIN NEGATIVE (NEGATIVE); BLOOD NEGATIVE Ery/uL (NEGATIVE); CLARITY CLEAR (CLEAR); COLOR YELLOW (YELLOW); GLUCOSE (U) NORMAL (NORMAL); LEUKOCYTES NEGATIVE Leu/uL (NEGATIVE); NITRITE NEGATIVE (NEGATIVE); PROTEIN NEGATIVE (NEGATIVE); SPECIFIC GRAVITY <=1.005 (1.001-1.030); UROBILINOGEN 0.2 mg/dL (0.2-1.0)
[2021-09-03] MEDS ORDERED: NORCO 5-325 TA1 EACH PO (23:21)
[2021-09-03] MEDS ORDERED: MEDROL 4MG DOSEP4 MG PO (23:21)
== END 2021-09-03 23:49 | disposition home or self-care (01) ==
LOC: FER 22:06
PROVIDERS: Internal Medicine
DX: M54.50 Low back pain, unspecified (principal); G89.29 Other chronic pain; J45.909 Unspecified asthma, uncomplicated; E03.9 Hypothyroidism, unspecified; F17.210 Nicotine dependence, cigarettes, uncomplicated; Z79.890 Hormone replacement therapy; Z91.041 Radiographic dye allergy status
CPT/HCPCS: 71045; 72100; 81003; J1100; J1170

== ENCOUNTER 2021-10-19 17:10 | Emergency (ER) | payer OTHER | END 2021-10-19 20:10 | disposition left against medical advice (07) | LOC: FER 17:10 | DX: M54.9 Dorsalgia, unspecified (principal); R11.0 Nausea; R51.9 Headache, unspecified; Z53.21 Procedure and treatment not carried out due to patient leaving prior to being seen by health care provider ==

== ENCOUNTER 2021-10-20 11:50 | Emergency (ER) | payer OTHER | END 2021-10-20 14:13 | disposition home or self-care (01) | LOC: FER 11:50 | DX: M54.42 Lumbago with sciatica, left side (principal); Z91.041 Radiographic dye allergy status | CPT/HCPCS: 99283; J2270; J2405 ==